=== PATIENT | male | born 1955 | race Caucasian/White ===

== ENCOUNTER 2016-10-07 09:49 | Inpatient (IN) | payer OTHER ==
[2016-10-07 08:34] LABS: BILIRUBIN NEGATIVE (NEGATIVE); BLOOD NEGATIVE Ery/uL (NEGATIVE); CLARITY CLEAR (CLEAR); COLOR YELLOW (YELLOW); GLUCOSE (U) NORMAL (NORMAL); KETONE (U) NEGATIVE (NEGATIVE); LEUKOCYTES NEGATIVE Leu/uL (NEGATIVE); NITRITE NEGATIVE (NEGATIVE); PROTEIN NEGATIVE (NEGATIVE); UROBILINOGEN 0.2 mg/dL (0.2-1.0); pH 6.5 (5.0-9.0)
[2016-10-08 04:41] LABS: HCT 32.5 % (42.0-52.0); HGB 10.6 g/dl (13.2-18.0); MCHC 32.6 g/dL (32.0-36.0); MPV 9.7 fL (6.0-9.5); RBC 3.65 M/uL (4.70-6.00); RDW 14.4 % (11.5-14.0)
[2016-10-08 04:57] LABS: POTASSIUM 3.4 mmol/L (3.5-5.1)
[2016-10-09 05:10] LABS: HCT 29.7 % (42.0-52.0); HGB 9.7 g/dl (13.2-18.0); MCH 29.3 pg (25.0-31.0); MCHC 32.7 g/dL (32.0-36.0); MCV 89.7 fL (78.0-100.0); RBC 3.31 M/uL (4.70-6.00); RDW 14.4 % (11.5-14.0); WBC 14.6 K/uL (4.0-10.5)
[2016-10-09 05:50] LABS: CREATININE 1.3 mg/dL (0.7-1.2)
[2016-10-09 09:40] LABS: POTASSIUM 3.5 mmol/L (3.5-5.1)
[2016-10-10 05:21] LABS: HGB 9.5 g/dl (13.2-18.0); MCH 29.1 pg (25.0-31.0); MCHC 32.8 g/dL (32.0-36.0); MPV 10.3 fL (6.0-9.5); RBC 3.26 M/uL (4.70-6.00); RDW 14.3 % (11.5-14.0); WBC 13.8 K/uL (4.0-10.5)
[2016-10-10 09:24] LABS: POTASSIUM 3.4 mmol/L (3.5-5.1)
== END 2016-10-11 14:55 | DRG 470 ==
LOC: FMS 09:49
PROVIDERS: Internal Medicine; ADMIT Legal Medicine
PROC: 8E0YXBZ Computer Assisted Procedure of Lower Extremity (ICD-10-PCS; 2016-10-07)
PROC: 0SRC0J9 Replacement of Right Knee Joint with Synthetic Substitute, Cemented, Open Approach (ICD-10-PCS; principal; 2016-10-07 07:00)
DX: M17.11 Unilateral primary osteoarthritis, right knee (principal); N17.9 Acute kidney failure, unspecified; Z68.41 Body mass index [BMI] 40.0-44.9, adult; D62 Acute posthemorrhagic anemia; E66.01 Morbid (severe) obesity due to excess calories; M21.161 Varus deformity, not elsewhere classified, right knee; E11.9 Type 2 diabetes mellitus without complications; I10 Essential (primary) hypertension; G47.30 Sleep apnea, unspecified; Z79.01 Long term (current) use of anticoagulants
CPT/HCPCS: 36415; 73560; 80048; 81003; 82962; 86850; 86900; 86901; 88305; 88311; 90686; 90732; 94010; 94762; 97110; 97116; 97162; 97166; 97530; 97530-GP; 97535; C1776; G0008; G0009; J0131; J0697; J1885; J2270; J2274; J2704; J2795

== ENCOUNTER 2016-10-11 10:30 | Inpatient (IN) | payer OTHER ==
--- NOTE | 2016-10-16 15:46 | NUR ---
DISCHARGE INSTRUCTIONS GIVEN TO PATIENT,VOICED COMPLETE UNDERSTANDING. TO HOME PER PRIVATE WITH FAMILY, CONDITION STABLE.
== END 2016-10-16 17:09 | disposition home health service (06) | DRG 560 ==
LOC: FSNU 10:30
PROVIDERS: ADMIT Internal Medicine
DX: Z47.1 Aftercare following joint replacement surgery (principal); N17.9 Acute kidney failure, unspecified; D62 Acute posthemorrhagic anemia; Z96.651 Presence of right artificial knee joint; E11.9 Type 2 diabetes mellitus without complications; I10 Essential (primary) hypertension; G47.30 Sleep apnea, unspecified
CPT/HCPCS: 97110; 97116; 97161; 97166; 97530; 97530-GP; 97535

== ENCOUNTER 2020-08-20 10:27 | Inpatient (IN) | payer MEDICARE ==
[~2020-08-20 10:27] MED LIST: ASPIRIN CHEWABL81 MG PO; COUMADIN3 MG PO; COZAAR100 MG PO; CRESTOR20 MG PO; FEOSOL325 MG PO; GLUCOTROL XL5 MG PO; TENORMIN50 MG PO; TRIAMTERENE-HC1 EACH PO
[2020-08-20 11:24] LABS: BASOPHIL 0.6 % (0-2); EOSINOPHIL 1.3 % (0-5); HCT 40.3 % (42.0-52.0); HGB 13.5 g/dl (13.2-18.0); LYMPHOCYTE 7.1 % (15-48); MCH 30.9 pg (25.0-31.0); MCHC 33.5 g/dL (32.0-36.0); MCV 92.2 fL (78.0-100.0); MONOCYTE 7.1 % (0-12); MPV 10.5 fL (6.0-9.5); NEUTROPHIL 82.7 % (41-80); NRBC 0; PLT 308 K/uL (150-400); RBC 4.37 M/uL (4.70-6.00); RDW 14.1 % (11.5-14.0); WBC 17.8 K/uL (4.0-10.5)
[2020-08-20 11:43] LABS: PROTHROMBIN TIME 105.4 SECONDS (11.4-13.6)
[2020-08-20 11:44] LABS: INR 14.99 (0.9-1.2)
[2020-08-20 11:49] LABS: CREATININE 3.16 mg/dL (0.67-1.17); POTASSIUM 2.9 mmol/L (3.5-5.1)
[2020-08-20 12:11] LABS: BILIRUBIN 1+ mg/dL (NEGATIVE); BLOOD NEGATIVE Ery/uL (NEGATIVE); CLARITY CLEAR (CLEAR); COLOR YELLOW (YELLOW); GLUCOSE (U) NORMAL (NORMAL); LEUKOCYTES NEGATIVE Leu/uL (NEGATIVE); NITRITE NEGATIVE (NEGATIVE); PROTEIN NEGATIVE (NEGATIVE); SPECIFIC GRAVITY 1.015 (1.001-1.030); UROBILINOGEN 0.2 mg/dL (0.2-1.0); pH 5.5 (5.0-9.0)
[2020-08-20] MEDS ORDERED: DILTIAZEM ER300 MG PO (13:58)
[2020-08-21 05:34] LABS: BASOPHIL 0.6 % (0-2); EOSINOPHIL 2.2 % (0-5); HCT 32.7 % (42.0-52.0); HGB 10.9 g/dl (13.2-18.0); LYMPHOCYTE 8.8 % (15-48); MCH 31.1 pg (25.0-31.0); MCHC 33.3 g/dL (32.0-36.0); MCV 93.2 fL (78.0-100.0); MONOCYTE 8.1 % (0-12); MPV 10.4 fL (6.0-9.5); NRBC 0; PLT 230 K/uL (150-400); RBC 3.51 M/uL (4.70-6.00); RDW 14.1 % (11.5-14.0); WBC 14.4 K/uL (4.0-10.5)
[2020-08-21 05:45] LABS: INR 1.83 (0.9-1.2); PROTHROMBIN TIME 20.1 SECONDS (11.4-13.6)
[2020-08-21 05:53] LABS: CREATININE 2.41 mg/dL (0.67-1.17); MAGNESIUM 1.7 mg/dL (1.8-2.4); POTASSIUM 2.8 mmol/L (3.5-5.1)
[2020-08-21 11:47] LABS: BUN/CREAT RATIO (CALC) 33.9 RATIO; CREATININE 2.27 mg/dL (0.67-1.17); POTASSIUM 3.3 mmol/L (3.5-5.1)
[2020-08-21 13:47] LABS: CREATININE 2.29 mg/dL (0.67-1.17); POTASSIUM 3.3 mmol/L (3.5-5.1)
[2020-08-21 13:55] LABS: MAGNESIUM 2.2 mg/dL (1.8-2.4)
[2020-08-21 14:01] LABS: PRO-BNP 1137 pg/mL (<125)
[2020-08-22 06:10] LABS: INR 1.24 (0.9-1.2); PROTHROMBIN TIME 14.8 SECONDS (11.4-13.6)
[2020-08-22 06:28] LABS: BUN/CREAT RATIO (CALC) 32.3 RATIO; CREATININE 1.92 mg/dL (0.67-1.17); POTASSIUM 3.3 mmol/L (3.5-5.1)
[2020-08-22 21:01] LABS: BUN/CREAT RATIO (CALC) 29.8 RATIO; CREATININE 1.71 mg/dL (0.67-1.17); POTASSIUM 3.3 mmol/L (3.5-5.1)
[2020-08-22 21:03] LABS: MAGNESIUM 1.7 mg/dL (1.8-2.4)
[2020-08-23 06:29] LABS: EOSINOPHIL 3.7 % (0-5); HCT 31.6 % (42.0-52.0); HGB 10.1 g/dl (13.2-18.0); LYMPHOCYTE 11.9 % (15-48); MCH 31.1 pg (25.0-31.0); MCV 97.2 fL (78.0-100.0); MONOCYTE 9.6 % (0-12); MPV 10.1 fL (6.0-9.5); NEUTROPHIL 72.1 % (41-80); NRBC 0; PLT 226 K/uL (150-400); RBC 3.25 M/uL (4.70-6.00); RDW 14.5 % (11.5-14.0); WBC 11.9 K/uL (4.0-10.5)
[2020-08-23 06:42] LABS: BUN/CREAT RATIO (CALC) 27.3 RATIO; CREATININE 1.5 mg/dL (0.67-1.17)
[2020-08-23] MEDS ORDERED: CARDIZEM CD240 MG PO (08:11)
[2020-08-23] MEDS ORDERED: ATENOLOL25 MG PO (08:23)
[2020-08-23] MEDS ORDERED: ELIQUIS5 MG PO (08:37)
[2020-08-25] MEDS ORDERED: OMEPRAZOLE40 MG PO (12:28)
== END 2020-08-23 13:07 | disposition home or self-care (01) | DRG 683 ==
LOC: FER 10:27 → FMS 12:01
PROVIDERS: Allergy & Immunology Allergy; Emergency Medicine; Hospitalist; ADMIT Internal Medicine
DX: N17.9 Acute kidney failure, unspecified (principal); I48.20 Chronic atrial fibrillation, unspecified; A08.4 Viral intestinal infection, unspecified; E87.6 Hypokalemia; Z20.822 Contact with and (suspected) exposure to COVID-19; E78.5 Hyperlipidemia, unspecified; I10 Essential (primary) hypertension; I48.0 Paroxysmal atrial fibrillation; T45.515A Adverse effect of anticoagulants, initial encounter; E11.22 Type 2 diabetes mellitus with diabetic chronic kidney disease; N18.30 Chronic kidney disease, stage 3 unspecified; Z96.653 Presence of artificial knee joint, bilateral; E86.0 Dehydration; E83.42 Hypomagnesemia; Z98.890 Other specified postprocedural states
CPT/HCPCS: 36415; 80048; 81003; 83735; 83880; 84484; 85025; 85610; 87045; 87046; 87449; 93005; 99284; J2405; J3430; J3475; J3480; J7030; J7120; U0002

== ENCOUNTER → 2020-08-25 | Day surgery (SDC) | payer MEDICARE ==
[~2020-08-25] MED LIST changes: +ATENOLOL25 MG PO; +CARDIZEM CD240 MG PO; +DILTIAZEM ER300 MG PO; +ELIQUIS5 MG PO; +OMEPRAZOLE40 MG PO
== END | disposition home or self-care (01) ==
LOC: FAS 09:24
DX: K20.90 Esophagitis, unspecified without bleeding (principal); K31.9 Disease of stomach and duodenum, unspecified; K63.5 Polyp of colon; K57.30 Diverticulosis of large intestine without perforation or abscess without bleeding; K29.70 Gastritis, unspecified, without bleeding; K25.9 Gastric ulcer, unspecified as acute or chronic, without hemorrhage or perforation; D50.0 Iron deficiency anemia secondary to blood loss (chronic); D72.829 Elevated white blood cell count, unspecified; R79.89 Other specified abnormal findings of blood chemistry; I48.91 Unspecified atrial fibrillation; I10 Essential (primary) hypertension; E78.00 Pure hypercholesterolemia, unspecified; G47.30 Sleep apnea, unspecified; E11.9 Type 2 diabetes mellitus without complications; Z79.82 Long term (current) use of aspirin; Z79.01 Long term (current) use of anticoagulants; Z20.822 Contact with and (suspected) exposure to COVID-19; Z96.653 Presence of artificial knee joint, bilateral
CPT/HCPCS: 88305; J1610; J2250; J2704; J7120; U0002

== ENCOUNTER 2021-10-16 11:22 | Emergency (ER) | payer MEDICARE ==
[2021-10-16] MEDS ORDERED: MEDROL 4MG DOSEP4 MG PO (14:19)
== END 2021-10-16 14:20 | disposition home or self-care (01) ==
LOC: FER 11:22
DX: S83.92XA Sprain of unspecified site of left knee, initial encounter (principal); I10 Essential (primary) hypertension; E11.9 Type 2 diabetes mellitus without complications; W19.XXXA Unspecified fall, initial encounter; Y92.009 Unspecified place in unspecified non-institutional (private) residence as the place of occurrence of the external cause
CPT/HCPCS: 73564

== ENCOUNTER → 2022-01-10 | Day surgery (SDC) | payer MEDICARE ==
[~2022-01-10] VITALS: Ht 177.8 cm; Wt 130.6 kg
[~2022-01-10] MED LIST changes: +LEXAPRO 10MG TA10 MG PO; +LIPITOR20 MG PO; +MEDROL 4MG DOSEP4 MG PO; +VITAMIN D310 MC1 PO
[2022-01-10 08:34] LABS: HCT 44.1 % (42.0-52.0); MCH 30.7 pg (25.0-31.0); MCHC 31.7 g/dL (32.0-36.0); MCV 96.7 fL (78.0-100.0); MPV 9.1 fL (6.0-9.5); RBC 4.56 M/uL (4.70-6.00); RDW 14.4 % (11.5-14.0)
[2022-01-10 09:23] LABS: ALBUMIN 3.4 g/dL (3.4-5.0); BILIRUBIN - TOTAL 0.8 mg/dL (0.2-1.0); CREATININE 0.85 mg/dL (0.67-1.17); GLOBULIN (CALCULATION) 3.1 g/dL; POTASSIUM 3.9 mmol/L (3.5-5.1); TOTAL PROTEIN 6.5 g/dL (6.4-8.2)
== END | disposition home or self-care (01) ==
LOC: FAS 07:55
PROVIDERS: Surgery
DX: Z12.11 Encounter for screening for malignant neoplasm of colon (principal); D12.2 Benign neoplasm of ascending colon; F32.A Depression, unspecified; E11.9 Type 2 diabetes mellitus without complications; I10 Essential (primary) hypertension; E78.00 Pure hypercholesterolemia, unspecified; I48.91 Unspecified atrial fibrillation; G47.33 Obstructive sleep apnea (adult) (pediatric); Z86.010 Personal history of colon polyps
CPT/HCPCS: 36415; 80053; J0690; J1610; J2704; J7120